=== PATIENT | male | born 1955 | race Two or more races ===

== ENCOUNTER 2019-03-01 10:46 | Emergency (ER) | payer SELFPAY ==
[~2019-03-01] VITALS: Ht 175.3 cm; Wt 65.8 kg
--- NOTE | 2019-03-01 11:26 | NUR ---
CALLED DEVYN GARCIA FOR HOMELESS RESOURCES.
--- NOTE | 2019-03-01 11:26 | NUR ---
FOOD TRAY PROVIDED.
--- NOTE | 2019-03-01 11:30 | NUR ---
DEVYN GARCIA AT BEDSIDE.
[2019-03-01 11:40] VITALS: BP 105/81
--- NOTE | 2019-03-01 11:40 | NUR ---
Social service consult requested by Dr. Lee for homeless resources. Pt. is a 63 year old male who came to [facility] complaining of a headache. Pt. called 911 because he states "I need a meal". Patient states that he is hungry. . Patient told the subpoena server's he had a headache however, denies having headache now. Patient states "I just need food". SW met with pt. bedside in ED. Pt. is alert and oriented x 4. Pt. appears dirty and disheveled. Patient has multiple armbands on from other hospitals. Patient states he cannot remember when or where he was last in the hospital. Patient is also wearing hospital socks. Pt. states he has been homeless for the past few years. Pt. receives SSI but is not able to disclose how much of it. Pt. stated, he wants some homeless resources for food and intermediate. SW offered pt. intermediate placement, however, pt. stated he will take the resources himself and get to the shelters. Pt. was given two sandwiches and juice. Pt. states, he thinks he might have Depression and Bipolar. Pt. is not taking any medications at this time. Pt. denies suicidal and homicidal ideations and visual/auditory hallucinations. Pt. denies smoking, taking alcohol or using drugs. Pt. is ambulatory. JOSE encouraged pt. to go to [facility] located at [address] in [facility] for case management assistance to link to homeless services. JOSE also gave pt. the following homeless resources: [facility] located at [address] [facility] [address] ; [facility] [place], [address] [place] [address], [place] ; [facility] [place], [address] [facility] [facility] [facility] ; [facility] Homeless Resource Directory which includes food stamps, transitional housing, showers and hot meals etc; Mental Health clinics such as [facility], [address]. [facility] ; [facility] ; Health clinics;[facility] and Alcohol treatment centers such as [facility], ; [facility] and [facility] . Homeless waiver form was signed by the pt. and placed pt's chart. JOSE updated CHRISTEL Boo regarding pt's discharge plan.
--- NOTE | 2019-03-01 12:09 | NUR ---
Patient given written and verbal discharge instructions. Patient verbalizes understanding of instructions. Patient is ambulatory with steady gait. Refuses offer of jail placement. Patient given list of available shelters in surrounding area.
== END 2019-03-01 12:10 | disposition home or self-care (01) ==
LOC: ER 10:46
DX: Z59.0 Homelessness (principal); Z60.2 Problems related to living alone